=== PATIENT | female | born 1965 | race Caucasian/White ===

== ENCOUNTER 2020-04-25 08:44 | Emergency (ER) | payer BC ==
[~2020-04-25] VITALS: Ht 160 cm; Wt 64.4 kg
[2020-04-25 08:54] VITALS: Ht 160 cm; Wt 64.4 kg
[2020-04-25 09:22] LABS: microscopic required? NO
[2020-04-25 09:33] LABS: BASOPHIL % 0.5 % (0-2); PLATELET COUNT 235 x10^3mcL (130-400); RED CELL DISTRIBUTION WIDTH 12.2 % (11.5-14.5)
[2020-04-25 09:55] LABS: CARBON DIOXIDE 25.1 mmol/L (21-32); CHLORIDE SERUM 101 mmol/L (98-107); CREATININE SERUM 0.9 mg/dL (0.6-1.0); GFR1 > 60 mL/min; GLUCOSE SERUM 118 mg/dL (74-106); POTASSIUM SERUM 3.9 mmol/L (3.5-5.1); SODIUM SERUM 137 mmol/L (136-145)
[2020-04-25 09:59] LABS: ALBUMIN 4.3 g/dL (3.4-5.0); ALKALINE PHOSPHATASE 65 U/L (46-116); ALT/SGPT 101 U/L (14-59); AST/SGOT 43 U/L (15-37); BILIRUBIN TOTAL 0.7 mg/dL (0.20-1.00); LIPASE 102 IU/L (73-393); TOTAL PROTEIN, SERUM 8.2 g/dL (6.4-8.2)
[2020-04-25 10:22] LABS: urine erythrocyte NEGATIVE (NEGATIVE)
[2020-04-25 11:53] VITALS: BP 135/88
== END 2020-04-25 11:53 | disposition home or self-care (01) ==
LOC: ED 08:44
PROVIDERS: Emergency Medicine
DX: R10.12 Left upper quadrant pain (principal); Z91.018 Allergy to other foods
CPT/HCPCS: J1885; J2405; J7030

== ENCOUNTER 2020-04-26 09:41 | Emergency (ER) | payer BC ==
[~2020-04-26] VITALS: Ht 160 cm; Wt 64.4 kg
[2020-04-26 10:16] VITALS: BP 118/74; Ht 160 cm; Wt 64.4 kg
== END 2020-04-26 10:42 | disposition home or self-care (01) ==
LOC: ED 09:41
DX: R10.812 Left upper quadrant abdominal tenderness (principal); R10.32 Left lower quadrant pain; Z91.018 Allergy to other foods